=== PATIENT | female | born 1980 ===

== ENCOUNTER 2018-01-06 06:34 | Day surgery (SDC) | payer OTHER ==
[2016-05-16 07:15] VITALS: BMI 27.3
--- NOTE | 2018-01-06 07:30 | CP.SDSHP ---
Same Day Surgery H & P - History Proposed Procedure: egd. colonoscopy. small bowel biopsy Pre-Op Diagnosis: rectal bleeding. heartburn. h/o celiac disease (prior biopsy negative) - Previous Medical/Surgical History Misc: Other (H pylori gastritis, ?Celiac disease, ) Previous Surgical History: biopsy breast cyst - Allergies Allergies: Allergies No Known Allergies Allergy (Verified 05/16/16 07:14) - Physical Exam Vital Signs: Vital Signs 01/06/18 06:57 Temperature 97.9 F Pulse Rate 71 Respiratory 18 Rate Blood Pressure 109/69 O2 Sat by Pulse 100 Oximetry Mental Status: Alert & Oriented x3 Neuro: WNL Heart: WNL Lungs: WNL GI: WNL - Impression Impression: rectal bleeding. heartburn. h/o celiac disease? Pt. Evaluated Today:Candidate for Anesthesia & Procedure: Yes - Date & Time Date: 01/06/18 Time: 07:30 Short Stay Discharge - Short Stay Discharge Admitting Diagnosis/Reason for Visit: HEARTBURN / CONSTIPATION / GASTROINTESTINAL BLEED Disposition: HOME/ ROUTINE
[2018-01-06] MEDS ORDERED: Propofol 10 mg/ml Inj (20 ML) ONE (08:21)
[2018-01-06 09:18] VITALS: TEMP 97.8
[2018-01-06 11:33] VITALS: BP 105/69; PULSE 58; RESP 18; O2SAT 99
== END 2018-01-06 10:45 | disposition home or self-care (01) ==
LOC: C.ENDO 06:34
PROVIDERS: ATTEND Internal Medicine Gastroenterology
DX: K21.0 Gastro-esophageal reflux disease with esophagitis (principal); K92.2 Gastrointestinal hemorrhage, unspecified; K59.00 Constipation, unspecified; K64.1 Second degree hemorrhoids
CPT/HCPCS: 43239; 45378; 84703; 87338; 88305; 88312; 88342; J2001; J2704; J3010